=== PATIENT | male | born 1960 | race African-American/Black ===

== ENCOUNTER 2024-12-16 20:52 | Inpatient (IN) | payer MEDICARE ==
[~2024-12-16] VITALS: Ht 167.6 cm; Wt 62.6 kg
[~2024-12-16 20:52] MED LIST: APIX5TAB PO; ATOR40TA70 PO; BUME1TAB8 PO; CARV3.1242 PO; EMPA10TA PO; FERR-63 PO; SPIR25TA6 PO; VANC125C5 MT
[2024-12-16] MEDS: FUROSEMIDE 40MG/4ML VIAL IVP ONE (22:38)
[2024-12-16 22:59] LABS: INR 1.3; PROTHROMBIN TIME 13.2 sec (9.6-11.0)
[2024-12-16 23:49] LABS: HEMOGLOBIN. 14.8 g/dL (14.0-18.0); MEAN CORPUSCULAR HEMOGLOBIN 25.5 pg (28.0-32.0); MEAN CORPUSCULAR HGB CONC 30.1 g/dL (31.0-37.0); MEAN CORPUSCULAR VOLUME 84.7 fL (80.0-94.0); MEAN PLATELET VOLUME 8.5 fl (7.4-10.4); PLATELET 271 x1000/uL (130-400); RED BLOOD CELL COUNT 5.79 mill/uL (4.7-6.1); RED CELL DISTRIBUTION WIDTH 27.6 % (11.6-14.6)
[2024-12-17 00:01] LABS: CHLORIDE 96 mEq/L (98-107); POTASSIUM 4.6 mEq/L (3.5-5.1); SODIUM 132 mEq/L (136-145)
[2024-12-17 00:02] LABS: CARBON DIOXIDE 25 mEq/L (21-32)
[2024-12-17 00:03] LABS: CALCIUM 9.3 mg/dL (8.7-10.4); DIFFERENTIAL COMMENT 1
[2024-12-17 00:07] LABS: GLUCOSE 100 mg/dL (70-105); UREA NITROGEN BLOOD 43 mg/dL (9-23)
[2024-12-17 00:10] LABS: TROPONIN I HIGH SENSITIVITY 22 ng/L (3.0-53)
[2024-12-17 00:17] LABS: CREATININE 2.3 mg/dL (0.6-1.3)
[2024-12-17 07:58] LABS: PLATELET ESTIMATE NORMAL
[2024-12-17] MEDS ORDERED: FURO40TA5 PO (10:12)
[2024-12-17] MEDS ORDERED: HYDR25TA78 PO (10:12)
[2024-12-17] MEDS ORDERED: ISOS20TA8 PO (10:12)
[2024-12-17] MEDS ORDERED: ACETAMINOPHEN 325MG TABLET PO PRN (10:15)
[2024-12-17] MEDS ORDERED: IPRATROPIUM/ALBUTEROL 0.5-3(2.5)MG/3ML NEB HHN PRN (10:15)
[2024-12-17] MEDS ORDERED: ONDANSETRON HCL 4MG/2ML INJ IV PRN (10:15)
[2024-12-17 10:19] VITALS: BP 131/88; PULSE 100; RESP 23; TEMP 36.9
[2024-12-17 12:00] VITALS: BP 131/88; PULSE 92; RESP 20; TEMP 36.8; O2SAT 94
[2024-12-17 14:46] LABS: CLARITY URINE CLEAR (CLEAR); COLOR URINE YELLOW (YELLOW); GLUCOSE URINE NEGATIVE (NEGATIVE); KETONES URINE NEGATIVE (NEGATIVE); LEUKOCYTE ESTERASE URINE NEGATIVE (NEGATIVE); NITRITE URINE NEGATIVE (NEGATIVE); OCCULT BLOOD URINE NEGATIVE (NEGATIVE); PROTEIN URINE 1+ (NEGATIVE); SPECIFIC GRAVITY URINE 1.017 (1.005-1.030)
[2024-12-17 15:00] LABS: *AMPHETAMINES SCREEN URINE NEGATIVE (NEGATIVE); *BENZODIAZEPINES SCREEN URINE NEGATIVE (NEGATIVE)
[2024-12-17 15:01] LABS: *BARBITURATES SCREEN URINE NEGATIVE (NEGATIVE); *COCAINE SCREEN URINE PRESUMPTIVE POSITIVE (NEGATIVE); CANNABINOID URINE SCREEN NEGATIVE (NEGATIVE); ECSTASY MDMA SCREEN URINE NEGATIVE (NEGATIVE); METHADONE URINE SCREEN NEGATIVE (NEGATIVE); OPIATES URINE SCREEN NEGATIVE (NEGATIVE); PHENCYCLIDINE URINE SCREEN NEGATIVE (NEGATIVE)
[2024-12-17] MEDS: FAMOTIDINE 20MG/2ML VIAL IV SCH (15:45)
[2024-12-17] MEDS: ATORVASTATIN CALCIUM 40MG TABLET PO SCH (15:46)
[2024-12-17] MEDS: LORAZEPAM 2MG/ML INJ IV NR (15:46)
[2024-12-17] MEDS: ISOSORBIDE DINITRATE 20MG TABLET PO SCH (15:46)
[2024-12-17] MEDS: HYDRALAZINE HCL 25MG TABLET PO SCH (15:46)
[2024-12-17 15:47] LABS: BACTERIA URINE FEW; RBC URINE NONE SEEN /hpf (0-2); SQUAMOUS EPITHELIAL CELL URINE NONE SEEN /lpf (RARE/1+); WBC URINE 0-2 /hpf (0-2); YEAST URINE NONE SEEN
[2024-12-17] MEDS: ENOXAPARIN 30MG/0.3ML SYR SUBCUT SCH (15:47)
[2024-12-17 16:00] VITALS: BP 136/85; PULSE 85; RESP 15; TEMP 36.8; O2SAT 93
[2024-12-17] MEDS: FUROSEMIDE 40MG/4ML VIAL IV SCH (19:52)
[2024-12-17 20:00] VITALS: BP 117/78; PULSE 84; RESP 17; TEMP 36.8; O2SAT 92
[2024-12-17 21:30] LABS: CALCIUM 8.3 mg/dL (8.7-10.4); POTASSIUM 4.8 mEq/L (3.5-5.1)
[2024-12-17 21:36] LABS: CREATININE 1.6 mg/dL (0.6-1.3)
[2024-12-17 21:37] LABS: PHOSPHORUS 3.7 mg/dL (2.5-4.9)
[2024-12-18 04:00] VITALS: BP 147/98; PULSE 95; RESP 16; TEMP 36.6; O2SAT 95
[2024-12-18 07:43] LABS: EOSINOPHILS % 3.1 % (0.0-5.0); HEMATOCRIT. 47.7 % (42.0-52.0); HEMOGLOBIN. 14.4 g/dL (14.0-18.0); LYMPHOCYTES % 9.8 % (20.0-50.0); MEAN CORPUSCULAR HEMOGLOBIN 25.9 pg (28.0-32.0); MEAN CORPUSCULAR HGB CONC 30.2 g/dL (31.0-37.0); MEAN CORPUSCULAR VOLUME 85.7 fL (80.0-94.0); MEAN PLATELET VOLUME 8.6 fl (7.4-10.4); MONOCYTES % 13.4 % (2.0-8.0); NEUTROPHILS % 72.7 % (40.0-76.0); PLATELET 262 x1000/uL (130-400); RED BLOOD CELL COUNT 5.57 mill/uL (4.7-6.1); RED CELL DISTRIBUTION WIDTH 27.1 % (11.6-14.6)
[2024-12-18 07:51] LABS: CALCIUM 8.6 mg/dL (8.7-10.4)
[2024-12-18 07:57] LABS: CREATININE 1.7 mg/dL (0.6-1.3)
[2024-12-18 08:00] VITALS: BP 124/72; PULSE 90; RESP 20; TEMP 36.7; O2SAT 94
[2024-12-18 08:00] LABS: ALANINE AMINOTRANSFERASE 19 IU/L (10-49)
[2024-12-18 08:01] LABS: ALBUMIN 3.4 g/dL (3.2-4.8); ASPARTATE AMINOTRANSFERASE 30 IU/L (<34); BILIRUBIN DIRECT 0.6 mg/dL (<=3.0); BILIRUBIN TOTAL 1.4 mg/dL (0.1-1.0); PROTEIN TOTAL 7.4 g/dL (6.0-8.3)
[2024-12-18 08:20] LABS: DIFFERENTIAL COMMENT 1
[2024-12-18 08:23] LABS: ADD RBC MORPHOLOGY YES
[2024-12-18 11:05] LABS: CREATININE URINE RANDOM 25.7 mg/dL
[2024-12-18 12:00] VITALS: BP 125/81; PULSE 87; RESP 22; TEMP 36.7; O2SAT 95
[2024-12-18 16:00] VITALS: BP 127/82; PULSE 92; RESP 20; TEMP 36.8; O2SAT 95
[2024-12-18 17:13] LABS: ANISOCYTOSIS 2+; PLATELET ESTIMATE NORMAL
[2024-12-18] MEDS: FUROSEMIDE 40MG/4ML VIAL IV SCH (18:39)
[2024-12-18 20:00] VITALS: BP 144/78; PULSE 97; RESP 18; TEMP 36.2; O2SAT 96
[2024-12-19] VITALS: BP 155/97; PULSE 97; RESP 17; TEMP 36.2; O2SAT 99
[2024-12-19 01:41] LABS: TROPONIN I HIGH SENSITIVITY 18 ng/L (3.0-53)
[2024-12-19 04:00] VITALS: BP 149/89; PULSE 89; RESP 20; TEMP 36.2; O2SAT 100
[2024-12-19 05:35] LABS: TROPONIN I HIGH SENSITIVITY 20 ng/L (3.0-53)
[2024-12-19 08:00] VITALS: BP 125/76; PULSE 95; RESP 21; TEMP 36.7; O2SAT 97
[2024-12-19] MEDS ORDERED: CLONIDINE 0.1MG TABLET PO PRN (08:00)
[2024-12-19] MEDS: EMPAGLIFLOZIN 10MG TABLET PO SCH (08:57)
[2024-12-19 11:08] LABS: HEMATOCRIT 44.6 % (42.0-52.0); HEMOGLOBIN 13.6 g/dL (14.0-18.0); MEAN CORPUSCULAR HEMOGLOBIN 25.9 pg (28.0-32.0); MEAN CORPUSCULAR HGB CONC 30.5 g/dL (31.0-37.0); MEAN CORPUSCULAR VOLUME 84.9 fL (80.0-94.0); PLATELET 240 x1000/uL (130-400); RED BLOOD CELL COUNT 5.25 mill/uL (4.7-6.1); RED CELL DISTRIBUTION WIDTH 26.5 % (11.6-14.6)
[2024-12-19 11:16] LABS: POTASSIUM 4.3 mEq/L (3.5-5.1)
[2024-12-19 11:17] LABS: CALCIUM 8.4 mg/dL (8.7-10.4)
[2024-12-19 11:21] LABS: CREATININE 1.5 mg/dL (0.6-1.3)
[2024-12-19 12:00] VITALS: BP 127/95; PULSE 98; RESP 14; TEMP 36.7; O2SAT 96
[2024-12-19 15:41] LABS: PROTEIN BODY FLUID 2.9 gm/dL
[2024-12-19 16:00] VITALS: BP 137/80; PULSE 94; RESP 20; TEMP 36.8; O2SAT 91
[2024-12-19 20:00] VITALS: BP 154/74; PULSE 97; RESP 20; TEMP 36.8; O2SAT 94
[2024-12-20] VITALS: BP 129/79; PULSE 97; RESP 17; TEMP 36.6; O2SAT 96
[2024-12-20 04:00] VITALS: BP 108/78; PULSE 90; RESP 20; TEMP 36.2; O2SAT 97
[2024-12-20 07:37] LABS: HEMATOCRIT 48.3 % (42.0-52.0); HEMOGLOBIN 14.8 g/dL (14.0-18.0); MEAN CORPUSCULAR HEMOGLOBIN 25.6 pg (28.0-32.0); MEAN CORPUSCULAR HGB CONC 30.6 g/dL (31.0-37.0); MEAN CORPUSCULAR VOLUME 83.5 fL (80.0-94.0); PLATELET 256 x1000/uL (130-400); RED BLOOD CELL COUNT 5.79 mill/uL (4.7-6.1); RED CELL DISTRIBUTION WIDTH 26.7 % (11.6-14.6); WHITE BLOOD COUNT 5.1 x1000/uL (4.5-11.0)
[2024-12-20 07:45] LABS: CARBON DIOXIDE 30 mEq/L (21-32); CHLORIDE 100 mEq/L (98-107); POTASSIUM 4.5 mEq/L (3.5-5.1); SODIUM 138 mEq/L (136-145)
[2024-12-20 07:51] LABS: CREATININE 1.3 mg/dL (0.6-1.3); GLUCOSE 62 mg/dL (70-105); UREA NITROGEN BLOOD 26 mg/dL (9-23)
[2024-12-20 08:00] VITALS: BP 142/83; PULSE 80; RESP 18; TEMP 36.7; O2SAT 98
[2024-12-20] MEDS ORDERED: LIP40 MT (11:40)
[2024-12-20] MEDS ORDERED: APIX5TAB MT (11:40)
[2024-12-20] MEDS ORDERED: EMPA10TA PO (11:40)
[2024-12-20] MEDS ORDERED: FURO80TA87 MT (11:40)
[2024-12-20 12:09] VITALS: BP 108/78; PULSE 90; TEMP 98; O2SAT 99
== END 2024-12-20 14:02 | disposition home or self-care (01) | DRG 917 ==
LOC: ER 20:52 → EDBEDREQTM 23:10 → EDBEDREQ 23:10 → 3WST 12-17 08:27
PROVIDERS: ADMIT Internal Medicine; ATTEND Internal Medicine
PROC: 0W993ZZ Drainage of Right Pleural Cavity, Percutaneous Approach (ICD-10-PCS; principal; 2024-12-19)
DX: T40.5X1A Poisoning by cocaine, accidental (unintentional), initial encounter (principal); I50.23 Acute on chronic systolic (congestive) heart failure; I13.0 Hypertensive heart and chronic kidney disease with heart failure and stage 1 through stage 4 chronic kidney disease, or unspecified chronic kidney disease; E87.1 Hypo-osmolality and hyponatremia; R18.8 Other ascites; N17.9 Acute kidney failure, unspecified; J90 Pleural effusion, not elsewhere classified; I47.20 Ventricular tachycardia, unspecified; F17.210 Nicotine dependence, cigarettes, uncomplicated; N18.9 Chronic kidney disease, unspecified; E83.51 Hypocalcemia; I48.91 Unspecified atrial fibrillation; F19.10 Other psychoactive substance abuse, uncomplicated; R74.8 Abnormal levels of other serum enzymes; F14.188 Cocaine abuse with other cocaine-induced disorder
CPT/HCPCS: 32555; 36415; 71045; 76604; 76705; 76770; 80048; 80076; 80305; 81003; 82550; 82570; 83615; 83735; 83880; 84100; 84300; 84484; 85025; 85027; 93306; 93970; 97166; 99285; A4606; J1650; J1940; J2060; J3490